=== PATIENT | female | born 1930 | race Caucasian/White ===

== ENCOUNTER 2017-07-12 16:17 | Observation (INO) | payer OTHER ==
[~2017-07-12] VITALS: Ht 157.5 cm; Wt 72.6 kg
[2017-07-12 17:19] LABS: BASOPHILS % 0.6 % (0.0-2.0); EOSINOPHILS % 0.9 % (0.0-5.0); HEMATOCRIT. 36.9 % (36.0-48.0); HEMOGLOBIN. 12.7 g/dL (12.0-16.0); LYMPHOCYTES % 29.7 % (20.0-50.0); MEAN CORPUSCULAR HEMOGLOBIN 31.8 pg (28.0-32.0); MEAN CORPUSCULAR VOLUME 92.5 fL (81.0-99.0); MEAN PLATELET VOLUME 8.5 fl (7.4-10.4); MONOCYTES % 8.4 % (2.0-8.0); NEUTROPHILS % 60.4 % (40.0-76.0); PLATELET 264 x1000/uL (130-400); RED BLOOD CELL COUNT 3.99 mill/uL (4.2-5.4); RED CELL DISTRIBUTION WIDTH 14.2 % (11.6-14.6)
[2017-07-12 17:22] LABS: CHLORIDE 106 mEq/L (98-107)
[2017-07-12 17:23] LABS: PROTHROMBIN TIME 10.5 sec (9.4-11.6)
[2017-07-12 20:20] VITALS: BP 129/60
[2017-07-12] MEDS ORDERED: HYDROCODONE/ACETAMINOPHEN 5/325MG TABLET PO PRN (21:15)
[2017-07-12] MEDS ORDERED: CLONIDINE 0.1MG TABLET PO PRN (21:15)
[2017-07-12] MEDS ORDERED: ACETAMINOPHEN 325MG TABLET PO PRN (21:15)
[2017-07-12] MEDS ORDERED: ASPI-1159 PO (21:19)
[2017-07-12] MEDS ORDERED: LEVO112T2 PO (21:19)
[2017-07-12 23:42] VITALS: BP 132/71
[2017-07-13 02:19] LABS: EOSINOPHILS % 1.7 % (0.0-5.0); HEMATOCRIT. 36.4 % (36.0-48.0); HEMOGLOBIN. 12.3 g/dL (12.0-16.0); MEAN CORPUSCULAR HEMOGLOBIN 31.3 pg (28.0-32.0); MEAN CORPUSCULAR VOLUME 92.5 fL (81.0-99.0); MEAN PLATELET VOLUME 8.9 fl (7.4-10.4); MONOCYTES % 9.2 % (2.0-8.0); NEUTROPHILS % 56.1 % (40.0-76.0); PLATELET 244 x1000/uL (130-400); RED BLOOD CELL COUNT 3.93 mill/uL (4.2-5.4); RED CELL DISTRIBUTION WIDTH 14.1 % (11.6-14.6)
[2017-07-13 03:03] LABS: CHLORIDE 110 mEq/L (98-107)
[2017-07-13 03:11] LABS: LDL CHOLESTEROL 130 mg/dL (5-100)
[2017-07-13 03:12] LABS: T4 FREE 0.98 ng/dL (0.76-1.46)
[2017-07-13 03:13] LABS: HDL CHOLESTEROL 56 mg/dL (40-59)
[2017-07-13 04:00] VITALS: BP 144/52
[2017-07-13] MEDS: LEVOTHYROXINE SODIUM 100MCG TABLET PO SCH ×2 (07:40→17:21)
[2017-07-13 08:22] VITALS: BP 150/55
[2017-07-13] MEDS ORDERED: ENOXAPARIN 40MG/0.4ML SYR SUBCUT SCH (09:00)
[2017-07-13] MEDS: ASPIRIN 81MG EC TABLET PO SCH ×2 (09:00→17:21)
[2017-07-13 12:00] VITALS: BP 160/64
[2017-07-13] MEDS ORDERED: REGADENOSON 0.4 MG/5 ML IV NR (12:15)
[2017-07-13] MEDS ORDERED: AMLODIPINE 2.5MG TABLET PO SCH (12:30)
[2017-07-13] MEDS ORDERED: MECLIZINE 25MG TABLET PO PRN (13:00)
[2017-07-13] MEDS ORDERED: REGADENOSON 0.4 MG/5 ML IV ONE (13:18)
[2017-07-13 16:00] VITALS: BP 135/52
[2017-07-13 18:45] VITALS: BP 135/52
[2017-07-13] MEDS ORDERED: ATORVASTATIN CALCIUM 20MG TABLET PO SCH (21:00)
== END 2017-07-13 19:24 | disposition home or self-care (01) ==
LOC: ER 17:11 → ENRESERV 17:22 → EDBEDREQ 18:23 → EDBEDREQTM 18:23 → 7WST 20:21
PROVIDERS: ADMIT Internal Medicine; ATTEND Internal Medicine
DX: R07.89 Other chest pain (principal); E03.9 Hypothyroidism, unspecified; E78.5 Hyperlipidemia, unspecified; I10 Essential (primary) hypertension; I20.0 Unstable angina; Z96.651 Presence of right artificial knee joint
CPT/HCPCS: 36415; 71045; 78452; 80048; 80053; 80061; 84439; 84443; 84484; 85025; 85610; 93005; 93017; 93306; 96372; 99285; A9500; G0378; J1650; J2785